=== PATIENT | male | born 1975 | race Caucasian/White ===

== ENCOUNTER 2019-01-27 06:28 | Emergency (ER) | payer OTHER ==
[2019-01-27 06:36] VITALS: BP 149/91
--- NOTE | 2019-01-27 06:58 | ED Physician Documentation ---
PD HPI MALE - Stated complaint Stated Complaint: MALE - Chief complaint Chief Complaint: General - History obtained from History obtained from: Patient - History of Present Illness Timing - onset: Last night (Last night about midnight he and his are having intercourse with her on top and the penis came out and then jammed forcefully on the Wilkinson pubic symphysis. He had an abrupt feeling of a pop and pain and noted some blood pretty quickly to the left side of the penis. He also noticed a drip of blood from the meatus. He continued with some bruising overnight. He did sleep until this morning. When he got up he was able to urinate but noticed some blood to come out first. There is bruising throughout the shaft and now into the scrotum.) Timing - details: Abrupt onset, Still present Associated symptoms: Hematuria. No: Dysuria PD HPI MALE CONTRIB FACTORS: Sexually active Similar symptoms before: Has not had sx before Recently seen: Not recently seen Review of Systems Constitutional: denies: Fever Nose: denies: Rhinorrhea / runny nose, Congestion Throat: denies: Sore throat Respiratory: denies: Cough GI: denies: Abdominal Pain, Nausea, Vomiting : reports: Hematuria, Other (Bruising of the penile shaft.) Musculoskeletal: denies: Neck pain, Back pain PD PAST MEDICAL HISTORY - Past Medical History Cardiovascular: None Respiratory: None Neuro: None Endocrine/Autoimmune: None - Present Medications Home Medications: Ambulatory Orders Medication Instructions Recorded Confirmed No Known Home Medications 01/27/19 01/27/19 - Allergies Allergies/Adverse Reactions: Allergies Allergy/AdvReac Type Severity Reaction Status Date / Time No Known Drug Allergies Allergy Verified 01/27/19 06:36 PD ED PE NORMAL - Vitals Vital signs reviewed: Yes - General General: Alert and oriented X 3, No acute distress, Well developed/nourished - Abdomen Abdomen: Soft, Non tender - Male Male : Other (There is drop of fresh blood at the penile meatus. The glands appear normal. There is bruising diffusely over the shaft and extending to the left side of the scrotum and the base of the penis. The abdomen is nontender. There is no inguinal hernias no adenopathy.) - Rectal Rectal: Deferred - Back Back: No CVA TTP - Derm Derm: Normal color, Warm and dry - Neuro Neuro: Alert and oriented X 3, No motor deficit, Normal speech Results - Vitals Vitals: Vital Signs - 24 hr 01/27/19 01/27/19 06:32 06:55 Temperature 36.6 C Heart Rate 94 Respiratory 18 16 Rate Blood Pressure 149/91 H O2 Saturation 95 Oxygen O2 Source Room air PD MEDICAL DECISION MAKING - ED course Complexity details: considered differential, d/w patient, d/w campaign consultant (I talked with urology who said this would be directly a surgical repair without any need for imaging or tests due to the extension to the urethra in the history of it. [facility] did not have any beds available but the [facility] in [place] did in the on-call urology accepted. I talked with Dr. Marroquin the emergency physician who accepted transfer and will consult urology on the patient's arrival. The patient has not eaten since dinner last night. He had some water this morning and is told to stay the nothing by mouth from here to see his [place] and to expect this surgery. He is aware he needs to go through the ER for evaluation as a place to be evaluated and may or may not necessarily be overnight. His will be driving him and they request private vehicle transfer and declined the offer of the ambulance transfer.) Departure - Departure Disposition: 02 Transfer Acute Care Hosp Clinical Impression: Fracture of corpus cavernosum penis, initial encounter Urethral tear Qualifiers: Encounter type: initial encounter Qualified Code(s): S37.33XA - Laceration of urethra, initial encounter Condition: Stable Record reviewed to determine appropriate education?: Yes Comments: Do not eat or drink. Go from here to the ER at [facility] in [place] and let them know you are there for urology evaluation. You will need to be initially in the ER as a place for them to start treatment. It would then be a surgical repair.
== END 2019-01-27 08:35 | disposition short-term general hospital (02) ==
LOC: ED 06:28
DX: S39.840A Fracture of corpus cavernosum penis, initial encounter (principal); S37.33XA Laceration of urethra, initial encounter; W23.0XXA Caught, crushed, jammed, or pinched between moving objects, initial encounter; Y93.89 Activity, other specified
CPT/HCPCS: 99283